=== PATIENT | female | born 1950 | race African-American/Black ===

== ENCOUNTER → 2017-02-03 | Outpatient (CLI) | payer OTHER ==
[~2017-02-03] VITALS: Ht 162.6 cm; Wt 68.0 kg
[2017-02-03 08:44] VITALS: BP 132/73
--- NOTE | 2017-02-03 17:00 | RAD ---
ULTRASOUND-GUIDED FINE NEEDLE ASPIRATION 02/03/2017 Clinical Indication: LT THYROID NODULE Comparison: Thyroid ultrasound 01/11/2017. Procedure: The risks, benefits, and alternatives of the procedure are discussed with the patient. Written informed consent is obtained. Skin site is prepped and draped in normal sterile fashion. 1% lidocaine is used for superficial and deep local anesthesia extending to the thyroid nodule. 3 separate passes were made with a 25-gauge needle. Subsequently a Rotex needle device was placed into the left thyroid nodule and also given to pathology. The patient tolerated the procedure well. There was no immediate complication. IMPRESSION: Ultrasound guided fine needle aspiration of a left thyroid nodule. Pathology pending.
--- NOTE | 2017-02-07 13:21 | PATHOLOGY ---
CYTOPATHOLOGY REPORT CLINICAL HISTORY: Left thyroid nodule SPECIMEN(S) RECEIVED: A.Fine needle aspiration, Left thyroid FINAL DIAGNOSIS: A. Left thyroid nodule fine needle aspiration, smears and cell block: - [place] category: Benign Clusters of follicular epithelial cells, colloid, and many macrophages identified. COMMENT: The findings are suggestive of an adenomatous nodule with cystic degeneration. There are no cytoarchitectural features of papillary carcinoma. (JPM:mml; 02/07/2017) PATHOLOGIST: Selwyn Wilkinson M.D. REPORT ELECTRONICALLY SIGNED BY: Selwyn Wilkinson M.D. DATE/TIME: 02/07/2017 13:20 GROSS PATHOLOGY: A. Fine needle aspiration, Left thyroid: The specimen is labeled "Mariama Gomez" and consists of two fixed slides, two H and E slides, and two air dried slides. Thirty mL of cloudy brown fluid in fixative from the needle rinse is also submitted and one ThinPrep slide was prepared from this material. One RNA retain vial has been received. ( 02.03.2017) DRAFTER TOPOGRAPHICAL(S): TANISHA Bustamante(ASCP) INITIAL CPT CODE(S): A; 09873, 62320 Professional services performed [place] [address] Technical services performed by [facility] at [address] [place] [address], [address], [place] [address] Martinez [phone] PATIENT: MARIAMA GOMEZ /AGE: 208/29/1950 (Age: 66) SEX: F PATIENT #: [id number] ALT CASE #: SPECIMEN COLLECTION DATE: 02/03/2017 SPECIMEN RECEIVED DATE: 02/03/[address] [facility] [address] [place] [address], [address] [place] [address] PHONE: [phone] DIRECTOR: Travon Vidales M.D. * * * END OF REPORT * * *
== END | disposition home or self-care (01) ==
LOC: US 08:30
PROVIDERS: ATTEND Surgery
DX: E04.1 Nontoxic single thyroid nodule (principal)
CPT/HCPCS: 60300; 76942

== ENCOUNTER → 2021-02-01 | Outpatient (CLI) | payer MEDICARE, OTHER ==
[2017-02-03 08:44] VITALS: BP 132/73
--- NOTE | 2021-02-01 11:36 | RAD ---
EXAM: Thyroid sonogram. HISTORY: Nontoxic multinodular goiter. TECHNIQUE: Sonographic imaging of the thyroid was performed. COMPARISON: 02/03/2017. FINDINGS: The right thyroid lobe measures 5.1 x 1.4 x 1.3 cm. The left thyroid lobe measures 5.7 x 1. 5 x 2.2 cm. The thyroid isthmus measures 2.3 mm. There are multiple lateral thyroid nodules and cysts. The largest lesion on the right is a mixed cyst ic and solid or complex cystic nodule measuring 11 x 6 x 5 mm, previously measuring 10 x 8 x 5 mm. Th ere is an adjacent similar appearing hypoechoic nodule measuring 6 x 5 x 3 mm. There are several smal ler right thyroid nodules and colloid cysts. There is diffusely heterogeneous thyroid parenchyma. The largest lesion on the left is a heterogeneous mixed cystic and solid nodule within the lower pole measuring 22 x 12 x 12 mm, previously measuring 18 x 17 x 11 mm. There is an adjacent hypoechoic nod ule with slight wall calcification measuring 16 x 11 x 10 mm. There is a third mixed cystic and solid nodule in this location measuring 22 x 14 x 14 mm, previously measuring 34 x 22 x 20 mm. There are s everal smaller left thyroid nodules and colloid cysts. There is diffusely heterogeneous thyroid paren chyma. IMPRESSION: 1. Diffusely heterogeneous thyroid containing multiple nodules and cysts, the appearance of which fav ors a goiter. 2. Dominant heterogeneous solid nodule with slight peripheral calcification within the inferior left thyroid lobe measuring 16 x 11 x 10 mm, without a correlate on the prior study. TI-RADS Category 5. S onographic fine needle aspiration is recommended. 3. Dominant mixed cystic and solid inferior left thyroid nodule measuring 22 x 14 x 14 mm, decreased compared to a measurement of 34 x 22 x 20 mm. TI-RADS Category 3. Follow up is recommended. 4. Dominant mixed cystic and solid inferior left thyroid nodule measuring 22 x 12 x 12 mm, slightly i ncreased compared to measurements of 18 x 17 x 11 mm. TI-RADS Category 3. Follow up is recommended. 5. Dominant mixed cystic and solid right thyroid nodule measuring 11 x 6 x 5 mm, previously measuring 10 x 8 x 5 mm. There is a similar-appearing adjacent nodule measuring 6 x 5 x 3 mm. TI-RADS Category 3. Follow up is recommended. Electronically signed by: Maren Browning MD (02/01/2021 11:33 AM) [id number]
== END ==
LOC: US 10:15
PROVIDERS: ATTEND Internal Medicine Endocrinology, Diabetes & Metabolism
DX: E04.2 Nontoxic multinodular goiter (principal)
CPT/HCPCS: 76536